=== PATIENT | male | born 1970 | race Caucasian/White ===

== ENCOUNTER 2018-09-03 07:28 | Emergency (ER) | payer SELFPAY ==
[2018-09-03 07:29] VITALS: BP 149/106; PULSE 104; RESP 20; TEMP 36.6; O2SAT 97; BMI 23.9
--- NOTE | 2018-09-03 07:36 | EKG12_ITS ---
Test Reason : Blood Pressure : / mmHG Vent. Rate : 083 BPM Atrial Rate : 083 BPM P-R Int : 160 ms QRS Dur : 096 ms QT Int : 390 ms P-R-T Axes : 068 081 057 degrees QTc Int : 458 ms Normal sinus rhythm with sinus arrhythmia Normal ECG Confirmed by NATALIE RAYA, SASHA ([id number]), make up editor ALEXANDREA HERCULES ([id number] on 09/06/2018 1:19:36 PM Referred By: GABI Confirmed By:SASHA ESTRADA MD
--- NOTE | 2018-09-03 07:36 | RAD_ITS ---
STUDY: X-RAY CHEST REASON FOR EXAM: Male, 48 years old. Chest pain and nausea. TECHNIQUE: Single AP portable view of the chest. COMPARISON: None. FINDINGS: The lungs are clear and expanded. There is no demonstrated pleural abnormality. Normal size heart. Normal mediastinum and michaela. Normal visualized pulmonary arteries. Normal visualized aortic arch and descending thoracic aorta. There are mild degenerative changes of the visualized thoracic spine. Normal visualized ribs, clavicles, and shoulders. There is no demonstrated abnormality of the visualized soft tissue structures of the upper abdomen. RAD/Chest 1 View (Portable) IMPRESSION: No acute abnormality is seen. Electronically Signed: Lorenzo Gonzalez MD at 7:54 EST Tel [phone], Service support ,
--- NOTE | 2018-09-03 07:39 | ED.VISSUMM ---
- ER Visit Summary Date of Service: 09/03/18 Chief Complaint: [vomiting and diarrhea] History of Present Illness: The patient is a 48 M [that presents with several episodes of vomiting and diarrhea over the last several hours after eating a salad from a grocery store last evening. He states his chest feels sore from vomiting. No hematemesis or blood in his stool. He denies any significant alcohol use. He overall appears well and nontoxic. No dyspnea or recent exertional symptoms. No cardiac history. He has no other complaints.] Physical Examination: [General: The patient appears well and in no apparent distress. Patient is resting comfortably on cart. Skin: Warm, dry, no pallor noted. No rash. Head: Normocephalic, atraumatic Neck: Supple, nontender. Eye: PERRLA, EOMI ENT: Moist mucus membranes, pharynx within normal limits. Cardiovascular: Regular Rate and Rhythm, no gallups or rubs Respiratory: Patient is in no distress, no accessory muscle use, lungs are clear to auscultation, no wheezing, rales or rhonchi Musculoskeletal: normal ROM, no deformity, no tenderness, no swelling. 2+ radial and DP pulses symmetric. GI: No tenderness to palpation, no masses appreciated. No rebound, guarding, or rigidity noted. Neurological: A&O, normal strength and sensation. Psychiatric: Cooperative] Test Results: [] Emergency Department Course and Treatment: [Patient was given IV fluid bolus and Zofran. Blood work, chest x-ray, and EKGs were ordered. No recent travel or antibiotic use. Patient works at a hotel. White blood cell count 14.7. Hemoglobin 18.2. CMP and lipase normal. Troponin negative. EKG shows sinus rhythm without evidence of acute ischemic change or arrhythmia. Chest x-ray shows no acute process. On re-evaluation at 0830 patient is sitting up sipping water and feels improved. He tolerates p.o. without difficulty. Abdominal exam remains soft, nontender, nondistended. He denies any chest pain or dyspnea. At this time I feel he can be discharged with a prescription for Zofran ODT, instructions to stay well-hydrated at home, and return with any new or worsening symptoms. I do not feel his presentation is consistent with ACS, PE, dissection, or Boerhaave syndrome. Patient and family understand signs and symptoms to return with. Patient was discharged home in stable and improved condition.] Treatment Plan: [see above] Disposition: [discharge home, stable and improved] Impression: [Vomiting - improved Diarrhea Chest Pain, nonspecific - resolved ] This note was generated with [employer] dictation software. It may contain incorrect words, spelling, and punctuation that were not noted in review of the chart prior to signing ED Disposition - Plan for ED Patient: Disposition: Home or Assisted Living Chief Complaint: Nausea/Vomiting Instructions: ED Vomiting Diarrhea Nonspecific Ad Prescriptions: Ondansetron [Zofran Odt] 4 mg PO Q8H PRN PRN #10 tab PRN Reason: Nausea/Vomiting Famotidine [Pepcid] 20 mg PO BID #28 tab Referrals: Jerad Jarvis MD [STAFF PHYSICIAN] -
[2018-09-03] MEDS: Ondansetron 4 MG/2 ML Vial IV (07:44)
[2018-09-03] MEDS: 0.9% Normal Saline 1,000 ML 1000 ML IV (07:44)
[2018-09-03 07:45] VITALS: BP 149/106; PULSE 104; RESP 20; TEMP 36.6; O2SAT 97
[2018-09-03 07:50] LABS: Absolute Lymphocyte Count 0.56 X10^3/ul (0.83-4.51); Absolute Neutrophil Count 13.2 X10^3/uL (2.0-7.7); Basophil# 0.01 X10^3/uL; Basophil% 0.1 % (0-1); Eosinophil# 0.34 X10^3/uL; Eosinophils% 2.3 % (0-5); Hematocrit 52.3 % (40-54); Lymphocyte # 0.56 X10^3/ul (4.0); Lymphocyte % 3.8 % (19-41); Mean Corp Hgb Conc 34.8 g/gl (32-36); Mean Corpuscular Hgb 30.8 pg (27.0-32.0); Mean Corpuscular Volume 88.6 fL (80-94); Mean Platelet Vol. 10.6 fl (6.2-12.0); Monocyte# 0.48 X10^3/uL; Monocyte% 3.3 % (0-10); Neutrophil # 13.24 X10^3/uL (2.7-7.7); Neutrophil % 90.3 % (47-70); Platelet Count 171 K/mm3 (150-450); RBC Distribution Width CV 12.6 % (11.6-14.6); RBC Distribution Width SD 40.7 fl (35.1-43.9); White Blood Count 14.7 K/mm3 (4.4-11.0)
[2018-09-03 07:51] LABS: Differential Indicated SCAN CRITERIA MET; Hemoglobin 18.2 g/dl (13.0-16.5); POSITIVE COUNT NO; POSITIVE DIFFERENTIAL YES; POSITIVE MORPHOLOGY NO
--- NOTE | 2018-09-03 07:52 | ED.RN ---
DR ASHLEY NOTIFIED OF HGB RESULTS
[2018-09-03 08:00] LABS: ALB/GLOB Ratio 1.2 RATIO (0.9-2.4); AST(SGOT) 22 U/L (15-37); Alanine Aminotransfer ALT/SGPT 31 U/L (16-61); Albumin, Serum 4.5 g/dL (3.2-5.0); Alkaline Phosphatase 64 U/L (45-117); Anion Gap 13 (5-15); BUN 24 mg/dL (7-18); BUN/Creat Ratio 18.8 RATIO (10-20); Calcium,Total 9.2 mg/dL (8.5-10.1); Chloride 107 mmol/L (98-107); Creatinine, Serum 1.28 mg/dL (0.70-1.30); EST Glomerular Filtration Rate 63 mL/min (>60); Est Glom Filt Rate - Afr Amer 77 mL/min (>60); Estimated Creatinine Clearance 67.54 ml/min; Globulin 3.7 g/dL (2.2-4.2); Glucose 140 mg/dL (74-106); Lipase 97 U/L (73-393); Potassium 3.8 mmol/L (3.5-5.1); Protein, Total 8.2 g/dL (6.4-8.2); Sodium Level 141 mmol/L (136-145)
[2018-09-03] MEDS: Ketorolac 15 MG/ML Vial IV (08:54)
[2018-09-03 08:58] VITALS: BP 134/82; PULSE 91; RESP 18; O2SAT 98
== END 2018-09-03 08:59 | disposition home or self-care (01) ==
PROVIDERS: Emergency Provider Emergency Medicine
DX: R11.2 Nausea with vomiting, unspecified (principal); R19.7 Diarrhea, unspecified; R07.9 Chest pain, unspecified
CPT/HCPCS: 71045; 80053; 83690; 84484; 85025; 93005; 96361; 96374; 96375; 99285; J7030; A4216; J2405

== ENCOUNTER 2021-08-06 13:58 | Emergency (ER) | payer SELFPAY ==
[2021-08-06 13:59] VITALS: BP 114/78; PULSE 83; RESP 18; TEMP 35.9; O2SAT 96; BMI 24.3
[2021-08-06] MEDS: proMETHazine 25 MG/ML Syringe 12.5 MG IM (16:06)
[2021-08-06 16:15] VITALS: RESP 18
--- NOTE | 2021-08-06 16:16 | EX.ED.DYSGE1 ---
HPI History of Present Illness Chief Complaint: Dizziness Narrative Narrative: 51-year-old male presenting with vertiginous dizziness. He states he has not had this in the past. He states he woke up from bed and was able to get to the gas station and by a cup of coffee but after this he became dizzy and feels like everything is spinning. He was able to get home but is not able to sit up or walk without vomiting. He states that when this happens he does feel like he has chills or cold sweats. He has not had a fever or cough. He denies chest pain or shortness of breath. He does not have a headache or neck pain. PFSH PFSH Home Medications meclizine 25 mg PO TID PRN #30 tab 08/06/21 [Rx Last Taken Unknown] Allergy/AdvReac Type Severity Reaction Status Date / Time No Known Allergies Allergy Verified 08/06/21 14:02 Social History Smoking Status: Current every day smoker tobacco type: cigarettes ROS ROS ED Constitutional Constitutional ED: Denies chills or fever(s) Eyes Eyes: Reports other Details: Sensation of spinning ENT ENT ED: Denies ear pain or rhinorrhea Cardiovascular Cardiovascular: Denies chest pain or palpitations Respiratory/Chest Respiratory/Chest: Denies cough or dyspnea Gastrointestinal Gastrointestinal: Denies abdominal pain or nausea Genitourinary Genitourinary ED: Denies dysuria or hematuria Musculoskeletal Musculoskeletal: Denies arthralgias, myalgias or neck pain Integumentary Denies Abrasions or rash Neurologic Neurologic: Denies headache(s), paresthesias or weakness Psychiatric Psychiatric: Denies anxiety or depression EXAM Physical Exam Const Vital Signs: 08/06/21 13:59 08/06/21 15:04 08/06/21 16:15 Temperature 96.6 F L Temperature Source Temporal Pulse Rate 83 Respiratory Rate 18 18 Respiratory Effort Normal Non-Labored Respiratory Pattern Normal Blood Pressure 114/78 Blood Pressure Mean 90 Pulse Ox 96 Oxygen Delivery Method Room Air 08/06/21 17:26 08/06/21 18:48 08/06/21 20:42 Temperature Temperature Source Pulse Rate 74 78 80 Respiratory Rate 16 16 16 Respiratory Effort Respiratory Pattern Blood Pressure 117/69 107/75 136/98 H Blood Pressure Mean 85 85 Pulse Ox 99 99 95 Oxygen Delivery Method Room Air Positive well nourished and well developed General Appearance ED: well developed and NAD HEENT Reports moist mucous membranes trauma Eyes PERRL and EOMs intact bilaterally Eyes Narrative: Reproducible sensation of room spinning with modified PATY hallpike. + nystagmus Neck no lymphadenopathy and supple Resp normal respiratory effort and clear to auscultation bilaterally Cardio regular rate and regular rhythm GI normal to inspection, nondistended, normoactive bowel sounds Neuro oriented x3 and CN's II-XII intact bilaterally Sensorium / Orientation: alert Psych mental status grossly normal Mood & Affect: depressed MDM MDM MDM Narrative Medical decision making narrative: Patient presenting with vertiginous dizziness. This is reproducible on exam with modified Delcambre-Hallpike. Patient was given meclizine and Phenergan and his symptoms did improve and he was able to stand up and urinate. He has concern he is dehydrated because his urine is dark. I did check a CBC and BMP and these are normal. Patient is able to ambulate with a stable gait currently. I believe this is all benign positional vertigo. Patient be discharged home prescription for meclizine. Impression: 1. Benign positional vertigo. Lab Data Attestation: I reviewed the patient's lab results. Labs: Laboratory Results - last 24 hr 08/06/21 08/06/21 08/06/21 15:11 15:11 19:17 WBC 10.1 RBC 5.58 Hgb 16.6 H Hct 49.5 MCV 88.7 MCH 29.7 MCHC 33.5 RDW Std Deviation 40.6 RDW Coeff of Dany 12.4 Plt Count 198 MPV 10.9 Immature Gran % (Auto) 0.400 Neut % (Auto) 76.1 H Lymph % (Auto) 15.5 L [place] % (Auto) 5.2 Eos % (Auto) 2.5 Baso % (Auto) 0.3 Absolute Neuts (auto) 7.7 Absolute Lymphs (auto) 1.57 Nucleated RBC % 0 Sodium 139 Potassium 3.8 Chloride 108 H Carbon Dioxide 23.0 Anion Gap 8 BUN 18 Creatinine 1.06 Estim Creat Clear Calc 78.87 Est GFR (MDRD) Af Amer 94 Est GFR (MDRD) Non-Af 78 BUN/Creatinine Ratio 17.0 Glucose 108 H Calcium 9.2 Urine Color Yellow Urine Clarity Clear Urine pH 6.0 Ur Specific [place] 1.025 Urine Protein 15 H Urine Glucose (UA) Normal Urine Ketones Negative Urine Occult Blood 10 H Urine Nitrite Negative Urine Bilirubin Negative Urine Urobilinogen Normal Ur Leukocyte Esterase Negative Urine RBC 0 SEEN Urine WBC 0 SEEN Ur Squamous Epith Cells 0 SEEN Urine Bacteria 0 SEEN Urine Mucus 2+ Discharge Plan Triage Chief Complaint: Dizziness ED Provider: Adrian Dumont Dx/Rx/DC Orders Instructions: ED BPV Vertigo Prescriptions: New meclizine 25 mg tablet 25 mg PO TID PRN (Reason: dizziness) Qty: 30 RF: 0 Primary Care Provider: Care Physician,No Primary Referrals: Daniel Ramirez MD [STAFF PHYSICIAN] - As soon as possible Care Physician,No Primary [Primary Care Provider] - Disposition Disposition: Home, Self Care Discharge Date/Time: 08/06/21 20:42
[2021-08-06] MEDS: Meclizine HCl 25 MG Tablet PO (16:29)
[2021-08-06 17:26] VITALS: BP 117/69; PULSE 74; RESP 16; O2SAT 99
[2021-08-06] MEDS: 0.9% Normal Saline 1,000 ML 999 ML IV (18:47)
[2021-08-06 18:48] VITALS: BP 107/75; PULSE 78; RESP 16; O2SAT 99
[2021-08-06 19:09] LABS: Absolute Lymphocyte Count 1.57 X10^3/uL (0.83-4.51); Absolute Neutrophil Count 7.7 X10^3/uL (2.0-7.7); Basophil# 0.03 X10^3/uL; Basophil% 0.3 % (0-1); Eosinophil# 0.25 X10^3/uL; Eosinophils% 2.5 % (0-5); Hematocrit 49.5 % (40-54); Hemoglobin 16.6 g/dL (13.0-16.5); Lymphocyte # 1.57 X10^3/ul (0.83-4.51); Lymphocyte % 15.5 % (19-41); Mean Corp Hgb Conc 33.5 g/dL (32-36); Mean Corpuscular Hgb 29.7 pg (27.0-32.0); Mean Corpuscular Volume 88.7 fL (80-94); Mean Platelet Vol. 10.9 fl (6.2-12.0); Monocyte# 0.53 X10^3/uL; Monocyte% 5.2 % (0-10); NRBC Flagged by Analyzer 0 % (0-5); Neutrophil % 76.1 % (47-70); Platelet Count 198 K/mm3 (150-450); RBC Distribution Width CV 12.4 % (11.6-14.6); RBC Distribution Width SD 40.6 fl (35.1-43.9); Red Blood Count 5.58 M/mm3 (4.6-6.2); White Blood Count 10.1 K/mm3 (4.4-11.0)
[2021-08-06 19:19] LABS: Anion Gap 8 (5-15); BUN 18 mg/dL (7-18); Calcium,Total 9.2 mg/dL (8.5-10.1); Chloride 108 mmol/L (98-107); Creatinine, Serum 1.06 mg/dL (0.70-1.30); EST Glomerular Filtration Rate 78 mL/min (>60); Est Glom Filt Rate - Afr Amer 94 mL/min (>60); Estimated Creatinine Clearance 78.87 ml/min; Glucose 108 mg/dL (74-106); Potassium 3.8 mmol/L (3.5-5.1); Sodium Level 139 mmol/L (136-145)
[2021-08-06 19:26] LABS: Bacteria 0 SEEN /hpf (None Seen); Red Blood Cells-Urine 0 SEEN /hpf (0-5); Squamous Epithelial Cells - UA 0 SEEN /hpf (0-5); White Blood Cells 0 SEEN /hpf (0-5)
[2021-08-06 19:28] LABS: Color, Urine Yellow (Yellow); Glucose, Dipstick Normal (Normal); Ketone-Dipstick Negative (Negative); Leukocyte Esterase-Dipstick Negative /ul (Negative); Nitrite-Dipstick Negative (Negative); Occult Blood-Urine 10 /ul (Negative); Protein-Dipstick 15 mg/dl (Negative); Specific Gravity, Urine 1.025 (1.002-1.030); Urine Bilirubin Dipstick Negative (Negative); Urine Clarity Clear (Clear); Urine Urobilinogen Normal (Normal)
[2021-08-06 19:39] LABS: Mucous, Urine 2+ /hpf (<or=2+)
[2021-08-06 20:42] VITALS: BP 136/98; PULSE 80; RESP 16; O2SAT 95
== END 2021-08-06 20:42 | disposition home or self-care (01) ==
PROVIDERS: Emergency Provider Student in an Organized Health Care Education/Training Program
DX: H81.10 Benign paroxysmal vertigo, unspecified ear (principal); F17.210 Nicotine dependence, cigarettes, uncomplicated
CPT/HCPCS: 80048; 81001; 85025; 96360; 96361; 96372; 99285; J7030; A4216

== ENCOUNTER 2022-04-25 08:40 | Observation (INO) | payer MEDICAID, SELFPAY ==
[2022-04-25] VITALS (9 sets, daily range): BP systolic 128–149; BP diastolic 83–96; PULSE 65–86; RESP 16–18; TEMP 36.3–36.6; O2SAT 96–99; BMI 28.1; BMI 26.2
--- NOTE | 2022-04-25 08:54 | RAD_ITS ---
STUDY: X-RAY CHEST REASON FOR EXAM: Male, 51 years old. Shortness of breath, cough and congestion. TECHNIQUE: Single AP portable view of the chest. COMPARISON: Comparison is made with prior study dated 09/03/2018. FINDINGS: EKG electrodes are seen. The lungs are clear and expanded. There is no demonstrated pleural abnormality. Normal size heart. Normal mediastinum and michaela. Normal visualized pulmonary arteries. Normal visualized aortic arch and descending thoracic aorta. There are diffuse degenerative changes of the visualized thoracic spine. Normal visualized ribs, clavicles, and shoulders. There is no demonstrated abnormality of the visualized soft tissue structures of the upper abdomen. RAD/Chest 1 View (Portable) IMPRESSION: No acute abnormality is seen. Electronically Signed: Lorenzo Gonzalez MD at 9:33 EDT ,
--- NOTE | 2022-04-25 08:54 | EKG12_ITS ---
Test Reason : CHEST OTHER Blood Pressure : / mmHG Vent. Rate : 077 BPM Atrial Rate : 077 BPM P-R Int : 174 ms QRS Dur : 094 ms QT Int : 378 ms P-R-T Axes : 064 062 055 degrees QTc Int : 427 ms Normal sinus rhythm Normal ECG Confirmed by NATALIE RAYA, SASHA ([id number]), electronic news gathering editor VASILIY WOO ([id number]) on 04/27/2022 9:02:50 AM Referred By: Confirmed By:SASHA ESTRADA MD
--- NOTE | 2022-04-25 08:54 | ED.VIS.DYS ---
HPI History of Present Illness Chief Complaint: Chest Pain Informant: patient Narrative Narrative: 51-year-old male states that he is here for dyspnea and chest pain. Patient states that he is in a relatively healthy person most of his life and really needs to see the doctor. He has been a lifelong smoker and notes that over the past several months he has had a significant change in his ability to ambulate particularly with stairs. He states that he could probably make it 1-2 flights of stairs before he needs to rest. He does note that with exertion he is dyspneic and a central chest pressure develops. Does not radiate. He does note diaphoresis at times. Resting resolves the symptoms. Has had no change in his cough or sputum. PFSH PFSH Home Medications meclizine 25 mg tablet 25 mg PO TID PRN dizziness #30 tabs 08/06/21 [Rx Last Taken Unknown] Allergy/AdvReac Type Severity Reaction Status Date / Time No Known Allergies Allergy Verified 04/25/22 08:44 Social History (Updated 04/25/22 @ 08:[address] Jama Guzman, ) Smoking Status: Current every day smoker tobacco type: cigarettes substance use type: does not use ROS ROS ED Constitutional Constitutional ED: Denies chills or weight loss Eyes Eyes: Denies change in vision or diplopia ENT ENT ED: Denies ear pain, rhinorrhea or sore throat Cardiovascular Cardiovascular: Reports chest pain; Denies orthopnea, palpitations or racing heartbeat Respiratory/Chest Respiratory/Chest: Reports dyspnea and dyspnea on exertion; Denies cough or orthopnea Gastrointestinal Gastrointestinal: Denies abdominal pain, diarrhea, nausea or vomiting Genitourinary Genitourinary ED: Denies dysuria, hematuria or urinary frequency Musculoskeletal Musculoskeletal: Denies arthralgias or myalgias Integumentary Denies abscess or rash Neurologic Neurologic: Denies headache(s) or weakness Psychiatric Psychiatric: Denies anxiety, depression, suicidal ideation or suicidal thoughts Endocrine Endocrinology: Denies polydipsia, polyphagia or polyuria Allergic/Immunologic Allergic/Immunologic ED: Denies mouth swelling, tongue swelling or urticaria EXAM Physical Exam Const Vital Signs: 04/25/22 08:42 04/25/22 08:59 Temperature 97.8 F Temperature Source Temporal Pulse Rate 86 Respiratory Rate 16 Respiratory Effort Normal Blood Pressure 135/91 H Blood Pressure Mean 105 Pulse Ox 96 Oxygen Delivery Method Room Air Positive well nourished and well developed General Appearance ED: well developed HEENT Reports normocephalic, head/scalp atraumatic and moist mucous membranes Eyes PERRL and EOMs intact bilaterally Neck no lymphadenopathy, supple and no JVD Resp normal respiratory effort and clear to auscultation bilaterally Cardio regular rate, regular rhythm and no murmurs GI normal to inspection, nondistended, normoactive bowel sounds and non-tender Palpation: soft Back/Spine no CVA tenderness and normal ROM Extremity normal to inspection General Extremety ED: Negative for edema General Extremity: Negative for edema Neuro oriented x3 and CN's II-XII intact bilaterally Sensorium / Orientation: alert Motor Exam: strength 5/5 throughout Psych mental status grossly normal Mood & Affect: Negative for depressed or tearful Skin no rashes or lesions noted and no wounds MDM MDM MDM Narrative Medical decision making narrative: My interpretation of the chest x-ray is no acute process. Potassium 3.2 with a troponin of 6. Clinically I am concerned about coronary artery disease. He has dyspnea and central chest pressure with exertion its been progressive over the past several months. I will speak with the hospitalist regarding admission for stress testing as I cannot ensure early follow-up as he has no PCP. Lab Data Labs: Laboratory Results - last 24 hr 04/25/22 04/25/22 09:20 09:20 WBC 3.4 L RBC 5.40 Hgb 16.1 Hct 46.4 MCV 85.9 MCH 29.8 MCHC 34.7 RDW Std Deviation 39.3 RDW Coeff of Dany 12.6 Plt Count 116 L MPV 10.7 Immature Gran % (Auto) 0.300 Neut % (Auto) 40.9 L Lymph % (Auto) 43.9 H [place] % (Auto) 11.3 H Eos % (Auto) 3.3 Baso % (Auto) 0.3 Absolute Neuts (auto) 1.4 L Absolute Lymphs (auto) 1.48 Nucleated RBC % 0 Sodium 141 Potassium 3.2 L Chloride 109 H Carbon Dioxide 25.0 Anion Gap 7 BUN 14 Creatinine 1.08 Estim Creat Clear Calc 77.41 Est GFR (MDRD) Af Amer 92 Est GFR (MDRD) Non-Af 76 BUN/Creatinine Ratio 13.0 Glucose 102 Calcium 9.0 Troponin I High Sens 6 Radiography Diagnostic Testing: Clinical Impression(s) from Imaging Studies Chest X-Ray 04/25/22 08:54 IMPRESSION: No acute abnormality is seen. Electronically Signed: Lorenzo Gonzalez MD at 9:33 EDT , EKG Initial EKG: Comments: Normal sinus rhythm with a ventricular rate of 77 bpm. Discharge Plan Dx/Rx/DC Orders Clinical Impression: Chest pain, Acute dyspnea, Continuous tobacco abuse Disposition Disposition: Acute Care Hospital [facility]
[2022-04-25] MEDS: Aspirin 81 MG TAB.CHEW 324 MG PO (09:07)
[2022-04-25 09:26] LABS: Absolute Lymphocyte Count 1.48 X10^3/uL (0.83-4.51); Absolute Neutrophil Count 1.4 X10^3/uL (2.0-7.7); Basophil# 0.01 X10^3/uL; Basophil% 0.3 % (0-1); Eosinophil# 0.11 X10^3/uL; Eosinophils% 3.3 % (0-5); Hematocrit 46.4 % (40-54); Hemoglobin 16.1 g/dL (13.0-16.5); Lymphocyte # 1.48 X10^3/ul (0.83-4.51); Lymphocyte % 43.9 % (19-41); Mean Corp Hgb Conc 34.7 g/dL (32-36); Mean Corpuscular Hgb 29.8 pg (27.0-32.0); Mean Corpuscular Volume 85.9 fL (80-94); Mean Platelet Vol. 10.7 fl (6.2-12.0); Monocyte# 0.38 X10^3/uL; Monocyte% 11.3 % (0-10); NRBC Flagged by Analyzer 0 % (0-5); Neutrophil # 1.38 X10^3/uL (2.7-7.7); Neutrophil % 40.9 % (47-70); Platelet Count 116 K/mm3 (150-450); RBC Distribution Width CV 12.6 % (11.6-14.6); RBC Distribution Width SD 39.3 fl (35.1-43.9); White Blood Count 3.4 K/mm3 (4.4-11.0)
[2022-04-25 09:44] LABS: Anion Gap 7 (5-15); BUN 14 mg/dL (7-18); Chloride 109 mmol/L (98-107); Creatinine, Serum 1.08 mg/dL (0.70-1.30); EST Glomerular Filtration Rate 76 mL/min (>60); Est Glom Filt Rate - Afr Amer 92 mL/min (>60); Estimated Creatinine Clearance 77.41 ml/min; Glucose 102 mg/dL (74-106); Potassium 3.2 mmol/L (3.5-5.1); Sodium Level 141 mmol/L (136-145); Troponin-I HS (w/2H Reflex) 6 pg/mL (3.0-78.0)
--- NOTE | 2022-04-25 10:12 | HP.PCM.HOS_ITS ---
HPI - General General Date of Admission: 04/25/22 Date of Service: 04/25/22 Chief Complaint: Chest discomfort HPI Narrative STEFANIE WAGGONER, is a 51 M with no chronic medical problems who presented with chest discomfort. The patient his symptoms have been ongoing for almost a month. He has noticed increasing shortness of breath with minimal activity. He did break out into sweat while cleaning windows about 5 days prior to his admission. He elected to present to the ED after calling his primary care physician for evaluation. There was apparently no opening. He was seen in the emergency department given his symptoms decision was made to admit patient for subsequent evaluation PFSH no medical history Home Medications meclizine 25 mg tablet 25 mg PO TID PRN dizziness #30 tabs 08/06/21 [Rx Last Taken Unknown] Allergy/AdvReac Type Severity Reaction Status Date / Time No Known Allergies Allergy Verified 04/25/22 08:44 Family History (Updated 04/25/22 @ 10:[address] Jose Alejandro Ricketts MD) Uncle Diabetes Social History Smoking Status: Current every day smoker tobacco type: cigarettes substance use type: does not use ROS ROS Narrative GENERAL: denies fever, chills, night sweats, weight loss, anorexia HEENT: denies headache, sinus congestion, or drainage, dysphagia RESPIRATORY: shortness of breath, dyspnea on exertion CARDIAC:s chest pain, GASTROINTESTINAL: denies abdominal pain, nausea, vomiting, melena, GENITOURINARY: denies dysuria, urgency, frequency, heamaturia EXTREMITY: denies swelling MUSCULOSKELETAL: denies current joint pain or tenderness NEUROLOGIC: denies focal numbness, weakness, tingling HEMATOLOGIC: denies easy bruising and/or hemorrhage INTEGUMENT: denies rashes PSYCHIATRIC: denies suicidal or homicidal ideation Vital Signs Vital Signs Vital Signs: 04/25/22 08:42 04/25/22 08:59 Temperature 97.8 F Temperature Source Temporal Pulse Rate 86 Respiratory Rate 16 Respiratory Effort Normal Blood Pressure 135/91 H Blood Pressure Mean 105 Pulse Ox 96 Oxygen Delivery Method Room Air Weight Weight: 83.915 kg Body Mass Index (BMI) 28.1 Physical Exam Narrative GENERAL: cooperative HEENT: Atraumatic; EYES; Anicteric, Normal Conjunctiva NECK; supple, normal thyroid, RESPIRATORY: Diminished to auscultation CARDIOVASCULAR: Regular S1 S2, GI: soft, normoactive bowel sounds, : No Renal angle tenderness; EXTREMITIES: No edema, no clubbing, MUSCULOSKELETAL: no muscle wasting NEURO: Awake; no lateralizing signs. SKIN: No Rash PSYCH; Flat affect Results Lab / Micro Data Result Diagrams: 04/25/22 09:20 04/25/22 09:20 Labs: Laboratory Results - last 24 hr 04/25/22 09:20: WBC 3.4 L, RBC 5.40, Hgb 16.1, Hct 46.4, MCV 85.9, MCH 29.8, MCHC 34.7, RDW Std Deviation 39.3, RDW Coeff of Dany 12.6, Plt Count 116 L, MPV 10.7, Immature Gran % (Auto) 0.300, Neut % (Auto) 40.9 L, Lymph % (Auto) 43.9 H, [place] % (Auto) 11.3 H, Eos % (Auto) 3.3, Baso % (Auto) 0.3, Absolute Neuts (auto) 1.4 L, Absolute Lymphs (auto) 1.48, Nucleated RBC % 0 04/25/22 09:20: Sodium 141, Potassium 3.2 L, Chloride 109 H, Carbon Dioxide 25.0, Anion Gap 7, BUN 14, Creatinine 1.08, Estim Creat Clear Calc 77.41, Est GFR (MDRD) Af Amer 92, Est GFR (MDRD) Non-Af 76, BUN/Creatinine Ratio 13.0, Glucose 102, Calcium 9.0, Troponin I High Sens 6 Radiology Impression Chest X-Ray 04/25/22 08:54 IMPRESSION: No acute abnormality is seen. Electronically Signed: Lorenzo Gonzalez MD at 9:33 EDT , Assessment & Plan Assessment/Plan (1) Chest pain: (2) Acute dyspnea: (3) Continuous tobacco abuse: (4) Acute hypokalemia: PLAN: Plan Patient is a 52-year-old gentleman presenting with exertional dyspnea 1. Exertional dyspnea ? Patient has been admitted to a monitored bed plan is to rule out VT with serial cardiac enzymes. Patient to undergo subsequent evaluation with a 2D echo serial cardiac enzymes as well as repeat EKG. If patient stress test comes back abnormal consultation will place to cardiology 2. Hypokalemia -Corrected per protocol 3. Thrombocytopenia ? Possibly related to patient chronic alcohol use we will monitor 4. Tobacco dependence - Counseled on cessation, offered nicotine patch for tobacco cravings 5. Chronic alcohol dependence ? Counseled on cessation 6. DVT prophylaxis Started on Lovenox with close monitoring of patient platelet counts Charges/Coding Visit Charges OBSV E&M: 61043 Initial observation care L3
--- NOTE | 2022-04-25 10:16 | CM.ED ---
SW met with patient as per the ED tracker patient has no PCP. SW met with patient. He has scheduled to see Dr. Bryant on 08/10/22. Patient said that was the earliest appointment he could get with a MD when he called a month ago. Patient said that he called Dr. Bryant's RN on Monday to see if there was a cancellation and she encouraged him to come to the ED. SW provided patient with where to go when information as resource and noted that Medicaid HMO's provide RN lines and assistance with transportation so it may be something he considers at redetermination time. SW remains available if needs arise. Plan: Resources provided. Violet CUEVAS
[2022-04-25] MEDS: Potassium Chloride Oral Tablet 20 MEQ 40 MEQ PO (10:17)
[2022-04-25 10:34] LABS: BNP,B-Type NATRIURETIC PEPTIDE 4.6 pg/mL (0-100)
--- NOTE | 2022-04-25 10:43 | ECHOD_ITS ---
Reason For Study: Chest Pain Procedure This was a 2D Doppler, Color Flow transthoracic echocardiogram. The study was technically difficult. Exam performed portable in patient room. The exam was abbreviated due to the COVID 19 protocol. Left Ventricle Normal LV size. Left ventricular systolic function is normal. The estimated ejection fraction is 60 %. No evidence for diastolic dysfunction. Right Ventricle Normal RV size. Normal systolic function. Atria Normal left atrium. Normal right atrium. No doppler evidence for ASD. Mitral Valve There is no mitral annular calcification. Normal mitral valve. Trivial mitral valve insufficiency. Tricuspid Valve Normal tricuspid valve. Trivial tricuspid valve insufficiency. Unable to estimate RV systolic pressure due to insufficient tricuspid regurgitant envelope. Aortic Valve Trisinus/trileaflet aortic valve. Normal aortic valve. Pulmonic Valve The pulmonic valve is not well visualized. Trivial pulmonic valve insufficiency. Great Vessels The aortic root is not well visualized. Pericardium/Pleural No pericardial effusion. MMode/2D Measurements & Calculations LVIDd: 4.6 cm IVSd: 1.1 cm LA dimension: 3.2 cm LVIDs: 2.9 cm LVPWd: 0.90 cm RVDd: 3.8 cm FS: 37.5 % LAV(MOD-sp4): 30.1 ml LA A4 area: 12.9 cm2 RA A4 area: 15.4 cm2 Time Measurements MV dec time: 0.30 sec Doppler Measurements & Calculations MV E max mayo: 75.3 cm/sec Lat Peak E' Mayo: 11.1 cm/sec Med Peak E' Mayo: 8.8 cm/sec MV A max mayo: 66.8 cm/sec E/E' lat: 6.8 E/E' med: 8.6 MV E/A: 1.1 MV V2 max: 77.5 cm/sec MV P1/2t max mayo: 74.5 cm/sec PA V2 max: 101.0 cm/sec MV max P.4 mmHg MV P1/2t: 77.0 msec MV V2 mean: 49.1 cm/sec MV dec slope: 283.3 cm/sec2 MV mean P.1 mmHg MVA(P1/2t): 2.9 cm2 MV V2 VTI: 25.9 cm ECHO/Echo Complete Interpretation Summary The study was technically difficult. Left ventricular systolic function is normal. The estimated ejection fraction is 60 %. Trivial mitral valve insufficiency. Trivial tricuspid valve insufficiency. Trivial pulmonic valve insufficiency. Unable to estimate RV systolic pressure due to insufficient tricuspid regurgita nt envelope. No evidence for diastolic dysfunction. Ordering Physician: Jose Alejandro Ricketts Performed By: Dami Geronimo RCS
--- NOTE | 2022-04-25 10:43 | EKG12_ITS ---
Test Reason : AM EKG Blood Pressure : / mmHG Vent. Rate : 063 BPM Atrial Rate : 063 BPM P-R Int : 178 ms QRS Dur : 094 ms QT Int : 410 ms P-R-T Axes : 075 068 062 degrees QTc Int : 419 ms Normal sinus rhythm Normal ECG Confirmed by NATALIE RAYA, SASHA ([id number]), sports editor VASILIY WOO ([id number]) on 04/27/2022 11:33:55 AM Referred By: Confirmed By:SASHA ESTRADA MD
[2022-04-25 11:21] LABS: Reflex Troponin-HS? (from REC) Y
[2022-04-25] MEDS: Enoxaparin 40 MG/0.4 ML Syringe SC (11:28)
[2022-04-25 11:32] LABS: Troponin-I HS 7 pg/mL (3.0-78.0)
[2022-04-25 11:35] LABS: Cholesterol 164 mg/dL (200); High Density Lipoprotein 26 mg/dL; Triglycerides 295 mg/dL; Very Low Density Lipoprotein 59 mg/dL (5-40)
[2022-04-25 16:21] LABS: Troponin-I HS 6 pg/mL (3.0-78.0)
[2022-04-26 01:41] VITALS: BP 124/82; PULSE 64; RESP 18; TEMP 36.9; O2SAT 96
[2022-04-26 03:54] VITALS: PULSE 65
[2022-04-26 05:14] VITALS: BP 131/94; PULSE 62; RESP 18; TEMP 36.9; O2SAT 97
[2022-04-26] MEDS: Aspirin E.C. 81 MG Tablet PO (05:16)
[2022-04-26] MEDS: 0.9% Saline Lock 10 ML Syringe IV (05:16)
--- NOTE | 2022-04-26 05:55 | EKG12_ITS ---
Test Reason : CP ADMISSION Blood Pressure : / mmHG Vent. Rate : 067 BPM Atrial Rate : 067 BPM P-R Int : 182 ms QRS Dur : 092 ms QT Int : 388 ms P-R-T Axes : 061 067 056 degrees QTc Int : 409 ms Normal sinus rhythm Normal ECG Confirmed by NATALIE RAYA, SASHA ([id number]), assistant production editor VASILIY WOO ([id number]) on 04/27/2022 11:36:50 AM Referred By: MAURA Confirmed By:SASHA ESTRADA MD
[2022-04-26 06:52] LABS: Absolute Lymphocyte Count 2.25 X10^3/uL (0.83-4.51); Absolute Neutrophil Count 1.2 X10^3/uL (2.0-7.7); Basophil# 0.01 X10^3/uL; Basophil% 0.2 % (0-1); Eosinophil# 0.16 X10^3/uL; Eosinophils% 3.9 % (0-5); Hematocrit 46.4 % (40-54); Lymphocyte # 2.25 X10^3/ul (0.83-4.51); Mean Corp Hgb Conc 34.5 g/dL (32-36); Mean Corpuscular Hgb 29.7 pg (27.0-32.0); Mean Corpuscular Volume 86.1 fL (80-94); Mean Platelet Vol. 11.2 fl (6.2-12.0); Monocyte# 0.44 X10^3/uL; Monocyte% 10.8 % (0-10); NRBC Flagged by Analyzer 0 % (0-5); Neutrophil # 1.22 X10^3/uL (2.7-7.7); Neutrophil % 29.9 % (47-70); Platelet Count 118 K/mm3 (150-450); RBC Distribution Width CV 12.6 % (11.6-14.6); RBC Distribution Width SD 39.4 fl (35.1-43.9); Red Blood Count 5.39 M/mm3 (4.6-6.2); White Blood Count 4.1 K/mm3 (4.4-11.0)
[2022-04-26 07:01] VITALS: PULSE 60
[2022-04-26 07:18] VITALS: O2SAT 96
[2022-04-26 07:27] LABS: AST(SGOT) 26 U/L (15-37); Alanine Aminotransfer ALT/SGPT 36 U/L (16-61); Albumin, Serum 3.6 g/dL (3.2-5.0); Alkaline Phosphatase 55 U/L (45-117); Anion Gap 6 (5-15); BUN 14 mg/dL (7-18); BUN/Creat Ratio 13.9 RATIO (10-20); Bilirubin, Direct 0.21 mg/dL (0.00-0.30); Calcium,Total 8.5 mg/dL (8.5-10.1); Chloride 108 mmol/L (98-107); Creatinine, Serum 1.01 mg/dL (0.70-1.30); EST Glomerular Filtration Rate 82 mL/min (>60); Est Glom Filt Rate - Afr Amer 99 mL/min (>60); Estimated Creatinine Clearance 82.77 ml/min; Globulin 3.3 g/dL (2.2-4.2); Glucose 90 mg/dL (74-106); Magnesium 1.8 mg/dL (1.6-2.6); Phosphorus 2.9 mg/dL (2.5-4.9); Protein, Total 6.9 g/dL (6.4-8.2); Sodium Level 139 mmol/L (136-145); Thyroid Stim Hormone (TSH) 2.63 uIU/mL (0.358-3.74)
--- NOTE | 2022-04-26 07:38 | PCM.PN.HOSP ---
Subjective Subjective Patient rapid and PCR test for COVID came back positive. Patient nuclear stress test was canceled. His enzymes have so far remain negative to date. Echo did not demonstrate any regional wall motion abnormality Objective Data Objective Data Vital Signs: Vital Signs Temp Pulse Resp BP Pulse Ox O2 Del Method 98.4 F 60 18 131/94 H 97 Room Air 04/26/22 05:14 04/26/22 07:01 04/26/22 05:14 04/26/22 05:14 04/26/22 05:14 04/26/22 05:14 Oxygen Delivery Method Room Air Weight: 78.2 kg Body Mass Index (BMI) 26.2 Lab / Micro Data Result Diagrams: 04/26/22 06:35 04/26/22 06:35 Labs: Laboratory Results - last 24 hr 04/25/22 09:20: WBC 3.4 L, RBC 5.40, Hgb 16.1, Hct 46.4, MCV 85.9, MCH 29.8, MCHC 34.7, RDW Std Deviation 39.3, RDW Coeff of Dany 12.6, Plt Count 116 L, MPV 10.7, Immature Gran % (Auto) 0.300, Neut % (Auto) 40.9 L, Lymph % (Auto) 43.9 H, [place] % (Auto) 11.3 H, Eos % (Auto) 3.3, Baso % (Auto) 0.3, Absolute Neuts (auto) 1.4 L, Absolute Lymphs (auto) 1.48, Nucleated RBC % 0 04/25/22 09:20: Sodium 141, Potassium 3.2 L, Chloride 109 H, Carbon Dioxide 25.0, Anion Gap 7, BUN 14, Creatinine 1.08, Estim Creat Clear Calc 77.41, Est GFR (MDRD) Af Amer 92, Est GFR (MDRD) Non-Af 76, BUN/Creatinine Ratio 13.0, Glucose 102, Calcium 9.0, Troponin I High Sens 6 04/25/22 09:20: B-Natriuretic Peptide 4.6 04/25/22 10:10: D-Dimer Quant (PE/DVT) 0.30 04/25/22 11:05: Troponin I High Sens Cancelled, Triglycerides 295 H, Cholesterol 164, LDL Cholesterol 79, VLDL Cholesterol 59 H, HDL Cholesterol 26 L 04/25/22 11:05: Troponin I High Sens 7 04/25/22 13:51: COVID-19 ([facility]) Detected 04/25/22 15:40: Troponin I High Sens 6 04/26/22 06:35: WBC 4.1 L, RBC 5.39, Hgb 16.0, Hct 46.4, MCV 86.1, MCH 29.7, MCHC 34.5, RDW Std Deviation 39.4, RDW Coeff of Dany 12.6, Plt Count 118 L, MPV 11.2, Immature Gran % (Auto) 0.200, Neut % (Auto) 29.9 L, Lymph % (Auto) 55.0 H, [place] % (Auto) 10.8 H, Eos % (Auto) 3.9, Baso % (Auto) 0.2, Absolute Neuts (auto) 1.2 L, Absolute Lymphs (auto) 2.25, Nucleated RBC % 0 04/26/22 06:35: Sodium 139, Potassium 4.0, Chloride 108 H, Carbon Dioxide 25.0, Anion Gap 6, BUN 14, Creatinine 1.01, Estim Creat Clear Calc 82.77, Est GFR (MDRD) Af Amer 99, Est GFR (MDRD) Non-Af 82, BUN/Creatinine Ratio 13.9, Glucose 90, Calcium 8.5, Phosphorus 2.9, Magnesium 1.8, Total Bilirubin 1.00, Direct Bilirubin 0.21, AST 26, ALT 36, Alkaline Phosphatase 55, Total Protein 6.9, Albumin 3.6, Globulin 3.3, TSH 2.63 Micro: Microbiology 04/25/22 12:05 Nasal Secretion SARS-CoV-2 Antigen (Rapid) - Final SARS-CoV-2 (COVID 19) Radiography Diagnostic Testing: Radiology Impression Chest X-Ray 04/25/22 08:54 IMPRESSION: No acute abnormality is seen. Electronically Signed: Lorenzo Gonzalez MD at 9:33 EDT , Echocardiogram 04/25/22 10:43 Interpretation Summary The study was technically difficult. Left ventricular systolic function is normal. The estimated ejection fraction is 60 %. Trivial mitral valve insufficiency. Trivial tricuspid valve insufficiency. Trivial pulmonic valve insufficiency. Unable to estimate RV systolic pressure due to insufficient tricuspid regurgitant envelope. No evidence for diastolic dysfunction. Ordering Physician: Jose Alejandro Ricketts Performed By: Dami Geronimo RCS Physical Exam Narrative GENERAL: cooperative HEENT: Atraumatic; EYES; Anicteric, Normal Conjunctiva NECK; supple, normal thyroid, RESPIRATORY: Diminished to auscultation CARDIOVASCULAR: Regular S1 S2, GI: soft, normoactive bowel sounds, : No Renal angle tenderness; EXTREMITIES: No edema, no clubbing, MUSCULOSKELETAL: no muscle wasting NEURO: Awake; no lateralizing signs. SKIN: No Rash PSYCH; Flat affect Assessment & Plan Assessment/Plan (1) Chest pain: (2) Acute dyspnea: (3) Continuous tobacco abuse: (4) Acute hypokalemia: PLAN: Plan Patient is a 52-year-old gentleman presenting with exertional dyspnea 1. Exertional dyspnea ? Patient has been admitted to a monitored bed plan is to rule out [place] with serial cardiac enzymes. Patient to undergo subsequent evaluation with a 2D echo serial cardiac enzymes as well as repeat EKG. If patient stress test comes back abnormal consultation will place to cardiology ? Patient nuclear stress test was canceled after he tested positive for COVID patient to complete work-up with an outpatient stress test to be ordered by his primary care physician 2. Hypokalemia -Corrected per protocol 3. Thrombocytopenia ? Possibly related to patient chronic alcohol use we will monitor 4. Tobacco dependence - Counseled on cessation, offered nicotine patch for tobacco cravings 5. Chronic alcohol dependence ? Counseled on cessation 6. DVT prophylaxis Started on Lovenox with close monitoring of patient platelet counts 7. Acute COVID 19 Mild symptoms, plan is to treat symptomatically Charges/Coding Visit Charges OBSV E&M: 52755 Subsequent observation care L2
[2022-04-26 08:38] VITALS: BP 122/78; PULSE 64; RESP 20; TEMP 36.4; O2SAT 98
--- NOTE | 2022-04-26 09:12 | PCM.DC.SUM ---
Providers Date of Admission: 04/25/22 Date of Discharge: 04/26/22 Primary Care Physician: No Primary Care Phys Reason For Visit: EXERTIONAL CHEST PAIN Diagnosis Discharge Diagnosis (1) Chest pain: Status: Acute Code(s): R07.9 - Chest pain, unspecified (2) Acute dyspnea: Status: Acute Code(s): R06.00 - Dyspnea, unspecified (3) Continuous tobacco abuse: Status: Acute Code(s): Z72.0 - Tobacco use (4) Acute hypokalemia: Status: Acute Code(s): E87.6 - Hypokalemia Plan Patient is a 52-year-old gentleman presenting with exertional dyspnea 1. Exertional dyspnea ? Patient has been admitted to a monitored bed plan is to rule out [place] with serial cardiac enzymes. Patient to undergo subsequent evaluation with a 2D echo serial cardiac enzymes as well as repeat EKG. If patient stress test comes back abnormal consultation will place to cardiology ? Patient nuclear stress test was canceled after he tested positive for COVID patient to complete work-up with an outpatient stress test to be ordered by his primary care physician 2. Hypokalemia -Corrected per protocol 3. Thrombocytopenia ? Possibly related to patient chronic alcohol use we will monitor 4. Tobacco dependence - Counseled on cessation, offered nicotine patch for tobacco cravings 5. Chronic alcohol dependence ? Counseled on cessation 6. DVT prophylaxis Started on Lovenox with close monitoring of patient platelet counts 7. Acute COVID 19 Mild symptoms, plan is to treat symptomatically Medications at Discharge Home Medications nicotine 21 mg/24 hr daily transdermal patch 1 patch transdermal DAILY 04/25/22 Hospital Course Summary of Care Provided Minutes Spent on Discharge: 35 Hospital Course: Patient is a 52-year-old gentleman presenting with exertional dyspnea 1. Exertional dyspnea ? Patient has been admitted to a monitored bed plan is to rule out [place] with serial cardiac enzymes. Patient to undergo subsequent evaluation with a 2D echo serial cardiac enzymes as well as repeat EKG. If patient stress test comes back abnormal consultation will place to cardiology ? Patient nuclear stress test was canceled after he tested positive for COVID patient to complete work-up with an outpatient stress test to be ordered by his primary care physician 2. Hypokalemia -Corrected per protocol 3. Thrombocytopenia ? Possibly related to patient chronic alcohol use we will monitor 4. Tobacco dependence - Counseled on cessation, offered nicotine patch for tobacco cravings 5. Chronic alcohol dependence ? Counseled on cessation 6. DVT prophylaxis Started on Lovenox with close monitoring of patient platelet counts 7. Acute COVID 19 Mild symptoms, plan is to treat symptomatically Physical Exam Narrative GENERAL: cooperative HEENT: Atraumatic; EYES; Anicteric, Normal Conjunctiva NECK; supple, normal thyroid, RESPIRATORY: Diminished to auscultation CARDIOVASCULAR: Regular S1 S2, GI: soft, normoactive bowel sounds, : No Renal angle tenderness; EXTREMITIES: No edema, no clubbing, MUSCULOSKELETAL: no muscle wasting NEURO: Awake; no lateralizing signs. SKIN: No Rash PSYCH; Flat affect Weight / BMI Weight Weight: 78.2 kg Body Mass Index (BMI) 26.2 ABG / Lab / Microbiology Data Result Diagrams: 04/26/22 06:35 04/26/22 06:35 Laboratory: Laboratory Results - last 24 hr 04/25/22 09:20: WBC 3.4 L, RBC 5.40, Hgb 16.1, Hct 46.4, MCV 85.9, MCH 29.8, MCHC 34.7, RDW Std Deviation 39.3, RDW Coeff of Dany 12.6, Plt Count 116 L, MPV 10.7, Immature Gran % (Auto) 0.300, Neut % (Auto) 40.9 L, Lymph % (Auto) 43.9 H, [place] % (Auto) 11.3 H, Eos % (Auto) 3.3, Baso % (Auto) 0.3, Absolute Neuts (auto) 1.4 L, Absolute Lymphs (auto) 1.48, Nucleated RBC % 0 04/25/22 09:20: Sodium 141, Potassium 3.2 L, Chloride 109 H, Carbon Dioxide 25.0, Anion Gap 7, BUN 14, Creatinine 1.08, Estim Creat Clear Calc 77.41, Est GFR (MDRD) Af Amer 92, Est GFR (MDRD) Non-Af 76, BUN/Creatinine Ratio 13.0, Glucose 102, Calcium 9.0, Troponin I High Sens 6 04/25/22 09:20: B-Natriuretic Peptide 4.6 04/25/22 10:10: D-Dimer Quant (PE/DVT) 0.30 04/25/22 11:05: Troponin I High Sens Cancelled, Triglycerides 295 H, Cholesterol 164, LDL Cholesterol 79, VLDL Cholesterol 59 H, HDL Cholesterol 26 L 04/25/22 11:05: Troponin I High Sens 7 04/25/22 13:51: COVID-19 ([facility]) Detected 04/25/22 15:40: Troponin I High Sens 6 04/26/22 06:35: WBC 4.1 L, RBC 5.39, Hgb 16.0, Hct 46.4, MCV 86.1, MCH 29.7, MCHC 34.5, RDW Std Deviation 39.4, RDW Coeff of Dany 12.6, Plt Count 118 L, MPV 11.2, Immature Gran % (Auto) 0.200, Neut % (Auto) 29.9 L, Lymph % (Auto) 55.0 H, [place] % (Auto) 10.8 H, Eos % (Auto) 3.9, Baso % (Auto) 0.2, Absolute Neuts (auto) 1.2 L, Absolute Lymphs (auto) 2.25, Nucleated RBC % 0 04/26/22 06:35: Sodium 139, Potassium 4.0, Chloride 108 H, Carbon Dioxide 25.0, Anion Gap 6, BUN 14, Creatinine 1.01, Estim Creat Clear Calc 82.77, Est GFR (MDRD) Af Amer 99, Est GFR (MDRD) Non-Af 82, BUN/Creatinine Ratio 13.9, Glucose 90, Calcium 8.5, Phosphorus 2.9, Magnesium 1.8, Total Bilirubin 1.00, Direct Bilirubin 0.21, AST 26, ALT 36, Alkaline Phosphatase 55, Total Protein 6.9, Albumin 3.6, Globulin 3.3, TSH 2.63 Microbiology: Microbiology 04/25/22 12:05 Nasal Secretion SARS-CoV-2 Antigen (Rapid) - Final SARS-CoV-2 (COVID 19) Radiography Diagnostic Testing: Radiology Impression Chest X-Ray 04/25/22 08:54 IMPRESSION: No acute abnormality is seen. Electronically Signed: Lorenzo Gonzalez MD at 9:33 EDT , Echocardiogram 04/25/22 10:43 Interpretation Summary The study was technically difficult. Left ventricular systolic function is normal. The estimated ejection fraction is 60 %. Trivial mitral valve insufficiency. Trivial tricuspid valve insufficiency. Trivial pulmonic valve insufficiency. Unable to estimate RV systolic pressure due to insufficient tricuspid regurgitant envelope. No evidence for diastolic dysfunction. Ordering Physician: Jose Alejandro Ricketts Performed By: Dami Geronimo RCS D/C Instructions Discharge Diet: No restrictions Discharge Activity: Return to Normal Activity Call your doctor if you observe: Fever of 101 or Higher, Shortness of breath, Fainting spells and Chest pain Meaningful Use Info Meaningful Use Diagnoses (Choose all that apply): None applicable Discharge Plan Admission Admit Date/Time: 04/25/22 09:59 Attending Provider: Jose Alejandro Ricketts Primary Care Provider: Care Physician,No Primary Discharge Orders/Prescriptions Prescriptions: Continued nicotine 21 mg/24 hr Patch 24 Hour 1 patch TRANSDERMAL DAILY Referrals / Follow Up: Care Physician,No Primary [Primary Care Provider] - Within 2 Weeks (For outpatient stress test) Disposition Disposition (needs filled in before D/C Order can be placed): Home, Self Care Charges/Coding Visit Charges OBSV E&M: 05789 Observation care discharge
--- NOTE | 2022-04-26 09:39 | CASEMGMT ---
KYE VELAZQUEZ updated by hospitalist that patient will need follow-up appt with PCP. Patient has appt with Annette on 08/10/22 to get established with PCP. KYE VELAZQUEZ called Annette' office and requested follow-up after hospitalization. Appt made for 04/29/[address] Galvan. KYE VELAZQUEZ updated hospitalist and added appt to discharge plan.
== END 2022-04-26 09:14 | disposition home or self-care (01) ==
LOC: ED 09:01 → PCU 10:21
PROVIDERS: Admitting Provider Internal Medicine; Emergency Provider Emergency Medicine; Visit Provider Internal Medicine
DX: U07.1 COVID-19 (principal); F10.20 Alcohol dependence, uncomplicated; D69.6 Thrombocytopenia, unspecified; R07.89 Other chest pain; E87.6 Hypokalemia; F17.210 Nicotine dependence, cigarettes, uncomplicated; R06.09 Other forms of dyspnea; Z79.899 Other long term (current) drug therapy; R06.02 Shortness of breath
CPT/HCPCS: U0005; 36415; 71045; 80048; 80061; 80076; 83735; 83880; 84100; 84443; 84484; 85025; 85379; 87426; 87635; 93005; 93306; 96372; 99218; 99285; A4216; G0378; U0003